=== PATIENT | male | born 2000 | race Two or more races ===

== ENCOUNTER 2024-03-11 18:49 | Emergency (ER) | payer OTHER ==
[~2024-03-11] VITALS: Ht 172.7 cm; Wt 79.4 kg
[2024-03-11] MEDS ORDERED: 0.9 % SODIUM CHLORIDE 1,000 ML IV STA (20:39)
[2024-03-11] MEDS ORDERED: CIPROFLOXACIN IN 5 % DEXTROSE 400 MG/200 ML PIGGYBAG IV ONE (20:45)
[2024-03-11] MEDS ORDERED: METRONIDAZOLE/SODIUM CHLORIDE 500 MG/100 ML PIGGYBACK IV ONE (20:45)
== END 2024-03-11 21:29 | disposition home or self-care (01) ==
LOC: ER 18:51
DX: M25.519 Pain in unspecified shoulder (principal)